=== PATIENT | female | born 1980 | race Asian ===

== ENCOUNTER → 2017-07-02 | Outpatient (CLI) | payer OTHER ==
--- NOTE | ~2017-07-02 | CR173 ---
[facility] A Service of [facility] RADIOLOGY TEXT RESULTS PATIENT: SOPHIA MENJIVAR LOCATION: [facility] : 76 UNIT #: [id number] AGE: [address]: DONNA PERRY MD SEX: F ORDER DR: [id number] [facility] [address] [place], [place] [address] [id number] O MR#: [id number] Acc #: [id number] NAME: SOPHIA MENJIVAR : 1980 SEX: F STUDY DATE/TIME: 07/02/2017 9:31 UNIT: [facility] ROOM: STUDY DESCRIPTION: CR Knee 3 Views Rt Attending Physician: Donna Perry M.D. Referring Physician: Donna Perry M.D. Ordering Physician: Donna Perry M.D. Primary Care Physician: Donna Perry M.D. MEDICAL IMAGING REPORT This report is preliminary unless electronic signature is present EXAM Right knee 3 views 07/02/2017 HISTORY Right knee pain and swelling for 1 week. No known injury. FINDINGS Three views of the right knee demonstrate no fracture. The bones are normally mineralized and the joint spaces normally maintained. There is a small knee joint effusion. IMPRESSION Small knee joint effusion. No evidence of fracture. Dictated by... Trey Pearce M.D. THIS IS AN ELECTRONICALLY VERIFIED REPORT Trey Pearce M.D. at 07/03/2017 7:46 AM ROMA/liliane TD: 07/02/2017 11:41 JOB #: [id number] MEDICAL IMAGING REPORT Page 1 of 1 COPY
== END | disposition home or self-care (01) ==
LOC: CRAD 09:10
DX: M25.562 Pain in left knee (principal); M25.461 Effusion, right knee
CPT/HCPCS: 73562